=== PATIENT | male | born 1995 | race Caucasian/White ===

== ENCOUNTER 2018-10-19 06:45 | Emergency (ER) | payer OTHER ==
[~2018-10-19] VITALS: Ht 182.9 cm; Wt 97.7 kg
[2018-10-19 07:45] LABS: BASO % 0.4 % (0.0-1.0); EOS # 0.1 10^3/uL (0.0-0.50); HEMATOCRIT 47.7 % (42.0-52.0); HEMOGLOBIN 15.9 g/dl (13.5-17.5); LYMPH # 1.8 10^3/uL (1.5-6.5); LYMPH % 24.8 % (24.0-44.0); MEAN CORPUSCULAR HEMOGLOBIN 28.5 pg (27.0-33.0); MEAN CORPUSCULAR HGB CONC 33.3 g/dl (32.0-36.5); MEAN CORPUSCULAR VOLUME 85.5 fl (80.0-96.0); MONO # 0.7 10^3/uL (0.0-0.8); MONO % 9.9 % (0.0-5.0); NEUTROPHILS # 4.4 10^3/uL (1.8-7.7); NEUTROPHILS % 62.6 % (36.0-66.0); PLATELET COUNT, AUTOMATED 229 10^3/uL (150-450); RED BLOOD COUNT 5.58 10^6/uL (4.30-6.10); WHITE BLOOD COUNT 7.1 10^3/uL (4.0-10.0)
[2018-10-19 08:09] LABS: ERYTHROCYTE SEDIMENTATION RATE 1 mm/hr (0-15)
[2018-10-19 08:27] LABS: BLOOD UREA NITROGEN 15 MG/DL (7-18); C REACTIVE PROTEIN QUANTITATIV < 0.30 MG/DL (0.00-0.30); CALCIUM LEVEL 9.2 MG/DL (8.5-10.1); CARBON DIOXIDE LEVEL 28 MEQ/L (21-32); CHLORIDE LEVEL 104 MEQ/L (98-107); CREATININE FOR GFR 0.89 MG/DL (0.70-1.30); GLOMERULAR FILTRATION RATE > 60.0 (>60); GLUCOSE, FASTING 92 MG/DL (70-100); POTASSIUM SERUM 4.2 MEQ/L (3.5-5.1); SODIUM LEVEL 139 MEQ/L (136-145)
[2018-10-19] MEDS ORDERED: PROHANCE 279.3MG/ML 5ML VIAL (A9576) As Ordered ONE (08:30)
[2018-10-19] MEDS ORDERED: PROHANCE 279.3MG/ML 15ML VIAL (A9576) As Ordered ONE (08:30)
--- NOTE | 2018-10-19 11:44 | REP ---
Clinical: Symptoms concerning for multiple sclerosis. Technique: Standard pre and postcontrast MRI of the brain using 19 ml ProHance gadolinium based contrast material. Findings: Pre and postcontrast MRI images of the brain are normal. No hemorrhage, mass or mass effect. No enhancing or abnormal signal intensity lesions are identified. No extra-axial collection. Midbrain and midline structures are intact. Sinuses are clear. Orbits are symmetric and normal. Impression: Normal pre and postcontrast MRI of the brain. Electronically Signed by Ashvin Magana MD 10/19/2018 11:36 A
--- NOTE | 2018-10-19 11:50 | REP ---
Clinical: Symptoms related to multiple sclerosis. Technique: Standard pre and postcontrast MRI of the thoracic spine. 19 mm ProHance gadolinium contrast used without complication. Findings: Thoracic vertebral bodies, disc spaces, spinal canal and cord appear normal. Postcontrast images were limited/incomplete due to technical factors. However, no obvious enhancing or abnormal signal intensity lesions are identified. Impression: No obvious abnormality of the thoracic spine. Electronically Signed by Ashvin Magana MD 10/19/2018 11:42 A
--- NOTE | 2018-10-19 11:55 | REP ---
Clinical: Symptoms suggesting the possibility of multiple sclerosis. Technique: Standard pre and postcontrast MRI sequencing of the lumbosacral spine. 19 ml ProHance gadolinium based contrast administered without complication. Findings: The lumbar vertebral bodies are intact and normal in appearance and signal intensity. There is no evidence for acute fracture / compression injury or subluxation. The conus is identified at the L1-2 level. Spinal cord nerve root and spinal canal appear relatively normal. There is a small posterior broad-based disc bulge at the L4-5 level with effacement of the thecal sac but no evidence for foraminal or canal stenosis. No obvious enhancing or abnormal signal intensity foci are identified. Impression: 1. Small posterior disc bulge at the L4-5 level with effacement of the thecal sac but no evidence for canal stenosis or neural foraminal narrowing/encroachment. 2. No further abnormalities are appreciated. Electronically Signed by Ashvin Magana MD 10/19/2018 11:46 A
--- NOTE | 2018-10-19 12:42 | REP ---
Clinical: Symptoms related to multiple sclerosis. Technique: Standard pre and postcontrast axial and sagittal MRI sequences of the cervical spine using 19 ml ProHance gadolinium based intravenous contrast material. Findings: Cervical vertebral bodies, disc spaces, spinal canal and cord appear normal on all given pre and postcontrast sequences. No obvious enhancing or abnormal signal intensity lesions are identified. Impression: No obvious abnormality of the cervical spine. Electronically Signed by Ashvin Magnaa MD 10/19/2018 12:34 P
[2018-10-19 13:00] VITALS: BP 125/64
[2018-10-19] MEDS ORDERED: PRED20TA PO (22:25)
== END 2018-10-19 13:03 | disposition home or self-care (01) ==
LOC: M ED 06:45
DX: R20.2 Paresthesia of skin (principal); M51.26 Other intervertebral disc displacement, lumbar region; Z87.891 Personal history of nicotine dependence
CPT/HCPCS: 70553; 72156; 72157; 72158; 80048; 85025; 85652; 86140; 99284; A9576

== ENCOUNTER 2018-10-19 21:22 | Emergency (ER) | payer OTHER ==
[~2018-10-19] VITALS: Ht 182.9 cm; Wt 97.7 kg
[2018-10-19] MEDS ORDERED: PRED20TA PO (22:25)
[2018-10-19] MEDS ORDERED: methylPREDNISolone INJ 125 MG/2 ML VIAL (J2930) IM ONE (22:30)
[2018-10-19 23:05] VITALS: BP 141/84
== END 2018-10-19 23:06 | disposition home or self-care (01) ==
LOC: M ED 21:22
DX: R20.2 Paresthesia of skin (principal); M51.36 Other intervertebral disc degeneration, lumbar region; Z87.81 Personal history of (healed) traumatic fracture
CPT/HCPCS: 96372; 99283; J2930